=== PATIENT | female | born 1980 | race American Indian/Alaskan Native ===

== ENCOUNTER 2020-02-24 10:23 | Outpatient (CLI) | payer MEDICAID ==
[2020-02-25] MEDS ORDERED: LACTATED RINGERS 500 ML IV ONE (15:01)
== END 2020-02-24 10:24 | disposition home or self-care (01) ==
LOC: LAB 10:23
PROVIDERS: ATTEND Obstetrics & Gynecology
DX: O26.893 Other specified pregnancy related conditions, third trimester (principal); Z67.41 Type O blood, Rh negative; Z3A.33 33 weeks gestation of pregnancy
CPT/HCPCS: 86850; 86900; 86901; 96372; J2790; J7120

== ENCOUNTER 2020-02-25 15:22 | Outpatient (CLI) | payer MEDICAID | END 2020-02-25 16:02 | disposition home or self-care (01) | LOC: TRG 15:22 → APU 15:27 → TRG 16:02 | PROVIDERS: ATTEND Obstetrics & Gynecology | DX: O26.893 Other specified pregnancy related conditions, third trimester (principal); Z3A.33 33 weeks gestation of pregnancy | CPT/HCPCS: 86901; 96372; J2790 ==

== ENCOUNTER 2020-04-11 11:05 | Inpatient (IN) | payer MEDICAID ==
[2020-04-11] MEDS ORDERED: TERBUTALINE 1 MG/1 ML INJ SUB-Q PRN (13:33)
[2020-04-11] MEDS ORDERED: MINERAL OIL 30 ML ORAL LIQD PO PRN ×2 (13:33→20:03)
[2020-04-11] MEDS ORDERED: ePHEDrine SULFATE 50 MG/1 ML INJ IV PRN (13:33)
[2020-04-11] MEDS ORDERED: LIDOCAINE (2%) 20 MG/1 ML VIAL 20 ML MDV INFILTRATI ONE ×2 (14:00→20:03)
[2020-04-11 14:09] LABS: Hematocrit 32.4 % (30.3-42.9); Hemoglobin 10.8 gm/dl (10.1-14.3); Mean Corpuscular HGB Conc 33 % (30-34); Mean Corpuscular Volume 85 fl (79-97); Platelet Count 158 K/mm3 (140-440); Red Blood Count 3.82 M/mm3 (3.65-5.03); Red Cell Distribution Width 18.7 % (13.2-15.2)
[2020-04-11 14:27] LABS: Bacteria,Urine 1+ /HPF (Negative); Bilirubin,Urine NEG (Negative); Blood,Urine NEG (Negative); Color,Urine Yellow (Yellow); Mucus,Urine FEW /HPF; Protein,Urine <15 mg/dL mg/dL (Negative); Urobilinogen,Urine < 2.0 mg/dL (<2.0); WBC,Urine < 1.0 /HPF (0.0-6.0)
[2020-04-11 14:31] LABS: Alanine Aminotransferase 13 units/L (7-56)
[2020-04-11] MEDS ORDERED: DINOPROSTONE 10 MG VAG SUPP VG ONE (14:33)
[2020-04-11] MEDS ORDERED: ONDANSETRON 4 MG/2 ML INJ IV PRN (20:03)
[2020-04-11] MEDS ORDERED: NALOXONE 0.4 MG/1 ML INJ IV PRN (20:03)
[2020-04-11] MEDS ORDERED: AMPICILLIN/NS 2 GM/100 ML 2 GM/100 ML BAG IV ONE (20:03)
[2020-04-11] MEDS ORDERED: miSOPROStol 200 MCG TAB PR PRN (20:03)
[2020-04-11] MEDS ORDERED: fentaNYL 100 MCG/2 ML INJ IV PRN (20:03)
[2020-04-11] MEDS ORDERED: BUTORPHANOL 2 MG/1 ML INJ IV PRN (20:03)
--- NOTE | 2020-04-11 20:10 | History and Physical Report ---
History of Present Illness Date of examination: 04/11/20 Date of admission: 04/11/20 11:05 Chief complaint: induction of labor History of present illness: Pt is a 40 year old female primigravida ABY 04/10/20 at 40w1d who presents for induction of labor. Her blood pressures were found to be elevated on Saturday04/08/20 and she was told to present to the hospital for induction at that time, but the patient remained at home because she was nervous. She checked her blood pressure over the weekend and reports values 140-150s/90s so she presented today as previously scheduled. She reports good movement and denies vaginal bleeding or leakage of fluid. She has had care at [facility] with comanagement by [facility] secondary to advanced maternal age, obesity, LGA fetus, pericardial effusion, fibroid uterus, Rh Negative s/p Rhogam on 02/24/20, genital herpes without lesion or prodrome, and GBS positive. Past History Past Medical History: no pertinent history Past Surgical History: no surgical history [employer]IST History: herpes (no lesion or prodrome ) Family/Genetic History: none Social history: no significant social history, - Obstetrical History Expected Date of Delivery: 04/10/20 Actual Gestation: 40 Week(s) 1 Day(s) : 1 Medications and Allergies Allergies Allergy/AdvReac Type Severity Reaction Status Date / Time No Known Allergies Allergy Verified 02/25/20 14:56 Home Medications Medication Instructions Recorded Confirmed Last Taken Type Pepcid 20 mg PO DAILY 04/11/20 04/11/20 2 Days Ago History ~04/09/20 20 MG Promethazine 25 mg PO Q6H PRN 04/11/20 04/11/20 2 Days Ago History ~04/09/20 25 mG Valacyclovir HCl [Valacyclovir] 1,000 mg PO DAILY 04/11/20 04/11/20 2 Days Ago History ~04/09/20 1000 Active Meds: Active Medications Ephedrine Sulfate (Ephedrine Sulfate 50 Mg/1 Ml Inj) 10 mg IV Q2M PRN PRN Reason: Hypotension Oxytocin/Sodium Chloride (Pitocin/Ns 30 Unit/500ml) 30 units in 500 mls @ 2 mls/hr IV TITR PERLITA; Protocol Lactated Ringer's (Lactated Ringers) 1,000 mls @ 125 mls/hr IV DIRECT PERLITA Mineral Oil (Mineral Oil 30 Ml Oral Liqd) 30 ml PO QHS PRN PRN Reason: Constipation Terbutaline Sulfate (Terbutaline 1 Mg/1 Ml Inj) 0.25 mg SUB-Q ONCE PRN PRN Reason: Hyperstimulation/Hypertonicity Review of Systems All systems: negative - Vital Signs Vital signs: Vital Signs Pulse BP 112 H 144/79 04/11/20 12:19 04/11/20 12:19 Temp Pulse Resp BP Pulse Ox 98.2 F 99 H 16 133/73 99 04/11/20 18:40 04/11/20 20:00 04/11/20 18:40 04/11/20 19:50 04/11/20 20:00 - Physical Exam Breasts: Positive: deferred Abdomen: Positive: soft (obese, gravid ) Genitourinary (Female): Positive: normal external genitalia Uterus: Positive: enlarged (gravid ) Extremities: Positive: normal - Obstetrical FHR: auscultation normal Uterine Contraction Monitor Mode: External Cervical Dilatation: 0 (per RN ) Uterine Contraction Pattern: Absent Uterine Tone Measurement Phase: Resting Uterine Contraction Intensity: Mild Results Result Diagrams: 04/11/20 13:30 04/11/20 13:30 Abnormal lab results 04/11/20 04/11/20 Range/Units 13:30 13:30 RDW 18.7 H (13.2-15.2) % Lactate Dehydrogenase 270 H (91-180) units/L All other labs normal. Assessment and Plan A: IUP at 40w1d Gestational Hypertension Advanced Maternal Age Obesity LGA fetus pericardial effusion Fibroid uterus Rh Negative s/p Rhogam on 02/24/20 Genital herpes without lesion or prodrome GBS positive P: Admit to labor and delivery PIH labs Cervical ripening with Cervidil Valtrex for prophylaxis Routine intrapartum care
[2020-04-11] MEDS ORDERED: OXYTOCIN DRIP 30 UNITS/500 ML BAG IV SCH (21:00)
[2020-04-11] MEDS: LACTATED RINGERS 1,000 ML IV SCH (21:21)
[2020-04-11] MEDS: valACYclovir 500 MG TAB PO SCH (22:18)
[2020-04-12] MEDS: LACTATED RINGERS 1,000 ML IV SCH ×3 (04:12→22:09)
[2020-04-12] MEDS ORDERED: FLU VACC QUAD 2020-2021 (6 months +)/PF 60 0.5 ML SYRINGE IM ONE (12:00)
[2020-04-12] MEDS: OXYTOCIN DRIP 30 UNITS/500 ML BAG IV SCH (12:26)
[2020-04-12] MEDS ORDERED: miSOPROStol 25 MCG TAB VG SCH (13:00)
--- NOTE | 2020-04-12 14:34 | Event Note ---
Date: 04/12/20 Pt now reports some pain with contractions. Category I tracing. Currently on pitocin because too may contractions to administer cervidil. Continue to closely monitor maternal and status.
[2020-04-12] MEDS: valACYclovir 500 MG TAB PO SCH (14:48)
[2020-04-12] MEDS: AMPICILLIN/NS 1 GM/50 ML 1 GM/50 ML BAG IV SCH ×2 (16:55→22:50)
[2020-04-12] MEDS ORDERED: DINOPROSTONE 10 MG VAG SUPP VG ONE (18:00)
[2020-04-13] MEDS: AMPICILLIN/NS 1 GM/50 ML 1 GM/50 ML BAG IV SCH ×5 (02:50→18:20)
[2020-04-13] MEDS ORDERED: NALOXONE 2 MG/2 ML INJ IV PRN (03:44)
[2020-04-13] MEDS ORDERED: ePHEDrine SULFATE 50 MG/1 ML INJ IV PRN (03:44)
--- NOTE | 2020-04-13 03:44 | Anesthesia Consultation ---
Anesthesia Consult and Med Hx Date of service: 04/13/20 - Airway Anesthetic Teeth Evaluation: Good ROM Head & Neck: Adequate Mental/Hyoid Distance: Adequate Mallampati Class: Class II Intubation Access Assessment: Probably Good - Pulmonary Exam CTA: Yes - Cardiac Exam Cardiac Exam: RRR - Pre-Operative Health Status ASA Pre-Surgery Classification: ASA2 Proposed Anesthetic Plan: Epidural - Pulmonary Hx Smoking: No Hx Asthma: No COPD: No Hx Pneumonia: No - Cardiovascular System Hx Hypertension: Yes Hx Coronary Artery Disease: No Hx Heart Attack/AMI: No Hx Angina: No Hx Percutaneous Transluminal Coronary Angioplasty (PTCA): No Hx Cardia Arrhythmia: No Hx Pacemaker: No Hx Internal Defibrillator: No Hx Valvular Heart Disease: No Hx Heart Murmur: No Hx Peripheral Vascular Disease: No - Central Nervous System Hx Neuromuscular Disorder: No Hx Seizures: No CVA: No Hx Back Pain: No Hx Psychiatric Problems: No - Gastrointestinal Hx Ulcer: No Hx Gastroesophageal Reflux Disease: No - Endocrine Hx Renal Disease: No Hx End Stage Renal Disease: No Hx Cirrhosis: No Hx Liver Disease: No Hx Insulin Dependent Diabetes: No Hx Non-Insulin Dependent Diabetes: No Hx Thyroid Disease: No Hx Hypothyroidism: No Hx Hyperthyroidism: No - Hematic Hx Anemia: No Hx Sickle Cell Disease: No - Other Systems Hx Alcohol Use: No Hx Substance Use: No Hx Cancer: No Hx Obesity: Yes
--- NOTE | 2020-04-13 03:44 | Progress Note ---
Labor Epidural - Labor Epidural Start Time: 04:05 Stop Time: 04:22 Performed by:: WILEY MONSON Procedure: Patient is requesting a laboring epidural for laboring pain. Patient IDed, H&P reviewed, all questions and concerns were answered, and consent was signed. Timeout was performed at bedside. Patient in sitting position. Sterile prep and drape was performed. [3] ml of 1% lidocaine skin wheal at L[3]- L [4]. 18- gauge Tuohy epidural needle was advanced to loss of resistance with air technique to 8cm. Negative CSF negative blood via Tuohy needle. #27g Spinal needle clear, free flowing CSF, Pecedex 10 mcg. Epidural catheter advanced to [12] centimeters. [negative] Aspiration [negative] test dose. Sterile dressing applied. Patient tolerated procedure.
[2020-04-13] MEDS: LACTATED RINGERS 1,000 ML IV SCH ×3 (04:24→15:12)
[2020-04-13] MEDS: fentaNYL-BUPIV 2 MCG/ML-0.125% 200 MCG/100 ML BAG EPIDURAL SCH ×2 (04:47→15:08)
[2020-04-13] MEDS: OXYTOCIN DRIP 30 UNITS/500 ML BAG IV SCH (06:11)
--- NOTE | 2020-04-13 08:57 | Progress Note ---
Assessment and Plan A: 40 yo at 40w2d EGA Active labor Gestational hypertension Advanced maternal age Rh negative GBS positive P: AROM clear fluid at 0730 Ampicillin prophylaxis Pitocin augmentation Anticipate Subjective - Subjective Date of service: 04/13/20 Principal diagnosis: Induction of labor for gHTN Interval history: HD3 of IOL for gestational hypertension and advanced maternal age Patient reports: movement normal, contractions (comfortable with epidural), no new complaints, no loss of fluid, no vaginal bleeding Objective - Vital Signs Vital Signs: Vital Signs - 12hr 04/12/20 04/12/20 04/12/20 20:55 21:00 21:05 Temperature Pulse Rate 98 H 94 H 87 Blood Pressure O2 Sat by Pulse 99 99 98 Oximetry 04/12/20 04/12/20 04/12/20 21:10 21:15 21:16 Temperature Pulse Rate 80 91 H 83 Blood Pressure 113/55 O2 Sat by Pulse 99 99 Oximetry 04/12/20 04/12/20 04/12/20 21:20 21:25 21:30 Temperature Pulse Rate 86 95 H 90 Blood Pressure O2 Sat by Pulse 98 97 98 Oximetry 04/12/20 04/12/20 04/12/20 21:35 21:40 21:45 Temperature Pulse Rate 118 H 95 H 90 Blood Pressure O2 Sat by Pulse 98 98 98 Oximetry 04/12/20 04/12/20 04/12/20 21:50 21:55 22:00 Temperature Pulse Rate 93 H 104 H 86 Blood Pressure O2 Sat by Pulse 99 100 99 Oximetry 04/12/20 04/12/20 04/12/20 22:05 22:19 22:24 Temperature Pulse Rate 91 H 116 H 95 H Blood Pressure O2 Sat by Pulse 99 100 100 Oximetry 04/12/20 04/12/20 04/12/20 22:29 22:34 22:39 Temperature Pulse Rate 103 H 98 H 97 H Blood Pressure O2 Sat by Pulse 99 99 100 Oximetry 04/12/20 04/12/20 04/12/20 22:44 22:49 22:54 Temperature Pulse Rate 95 H 92 H 90 Blood Pressure O2 Sat by Pulse 100 99 100 Oximetry 04/12/20 04/12/20 04/12/20 22:59 23:04 23:13 Temperature Pulse Rate 106 H 108 H 109 H Blood Pressure O2 Sat by Pulse 99 100 99 Oximetry 04/12/20 04/12/20 04/12/20 23:18 23:23 23:28 Temperature Pulse Rate 106 H 101 H 110 H Blood Pressure O2 Sat by Pulse 98 98 99 Oximetry 04/12/20 04/12/20 04/12/20 23:33 23:38 23:43 Temperature Pulse Rate 103 H 100 H 103 H Blood Pressure O2 Sat by Pulse 99 99 98 Oximetry 04/12/20 04/12/20 04/13/20 23:50 23:55 00:00 Temperature Pulse Rate 109 H 101 H 103 H Blood Pressure O2 Sat by Pulse 99 99 98 Oximetry 04/13/20 04/13/20 04/13/20 00:05 00:10 00:15 Temperature Pulse Rate 101 H 100 H 102 H Blood Pressure 125/63 O2 Sat by Pulse 98 99 99 Oximetry 04/13/20 04/13/20 04/13/20 00:20 00:25 00:30 Temperature Pulse Rate 102 H 103 H 104 H Blood Pressure O2 Sat by Pulse 98 99 98 Oximetry 04/13/20 04/13/20 04/13/20 00:35 00:40 00:45 Temperature Pulse Rate 110 H 118 H 104 H Blood Pressure O2 Sat by Pulse 96 100 98 Oximetry 04/13/20 04/13/20 04/13/20 00:50 01:02 01:07 Temperature Pulse Rate 107 H 119 H 109 H Blood Pressure O2 Sat by Pulse 100 99 99 Oximetry 04/13/20 04/13/20 04/13/20 01:12 01:17 01:22 Temperature Pulse Rate 97 H 114 H 110 H Blood Pressure O2 Sat by Pulse 97 100 97 Oximetry 04/13/20 04/13/20 04/13/20 01:27 01:32 01:37 Temperature Pulse Rate 108 H 99 H 105 H Blood Pressure O2 Sat by Pulse 97 99 97 Oximetry 04/13/20 04/13/20 04/13/20 01:42 01:47 01:52 Temperature Pulse Rate 103 H 101 H 110 H Blood Pressure O2 Sat by Pulse 99 99 98 Oximetry 04/13/20 04/13/20 04/13/20 02:01 02:06 02:11 Temperature Pulse Rate 101 H 105 H 109 H Blood Pressure O2 Sat by Pulse 99 99 98 Oximetry 04/13/20 04/13/20 04/13/20 02:15 02:16 02:17 Temperature Pulse Rate 100 H 95 H 105 H Blood Pressure 115/56 O2 Sat by Pulse 96 94 Oximetry 04/13/20 04/13/20 04/13/20 02:21 02:23 02:26 Temperature Pulse Rate 95 H 92 H 97 H Blood Pressure O2 Sat by Pulse 95 94 95 Oximetry 04/13/20 04/13/20 04/13/20 02:31 02:36 02:41 Temperature Pulse Rate 95 H 93 H 97 H Blood Pressure O2 Sat by Pulse 99 97 100 Oximetry 04/13/20 04/13/20 04/13/20 02:46 02:51 02:56 Temperature Pulse Rate 103 H 99 H 96 H Blood Pressure O2 Sat by Pulse 98 97 99 Oximetry 04/13/20 04/13/20 04/13/20 03:01 03:06 03:11 Temperature Pulse Rate 107 H 105 H 105 H Blood Pressure O2 Sat by Pulse 100 98 98 Oximetry 04/13/20 04/13/20 04/13/20 03:14 03:16 03:21 Temperature Pulse Rate 100 H 95 H 99 H Blood Pressure 121/57 O2 Sat by Pulse 94 95 97 Oximetry 04/13/20 04/13/20 04/13/20 03:26 03:30 03:31 Temperature Pulse Rate 101 H 97 H 118 H Blood Pressure O2 Sat by Pulse 99 93 100 Oximetry 04/13/20 04/13/20 04/13/20 03:36 03:41 03:46 Temperature Pulse Rate 94 H 112 H 103 H Blood Pressure O2 Sat by Pulse 98 100 97 Oximetry 04/13/20 04/13/20 04/13/20 03:51 03:56 03:57 Temperature Pulse Rate 94 H 94 H 96 H Blood Pressure 130/66 O2 Sat by Pulse 98 100 Oximetry 04/13/20 04/13/20 04/13/20 04:01 04:06 04:07 Temperature Pulse Rate 98 H 96 H 90 Blood Pressure 114/71 O2 Sat by Pulse 98 99 Oximetry 04/13/20 04/13/20 04/13/20 04:11 04:15 04:16 Temperature Pulse Rate 105 H 100 H 105 H Blood Pressure 126/68 O2 Sat by Pulse 99 99 Oximetry 04/13/20 04/13/20 04/13/20 04:21 04:23 04:24 Temperature Pulse Rate 98 H 91 H 102 H Blood Pressure 130/65 119/64 O2 Sat by Pulse 100 Oximetry 04/13/20 04/13/20 04/13/20 04:26 04:27 04:28 Temperature Pulse Rate 109 H 112 H 101 H Blood Pressure 146/61 121/56 O2 Sat by Pulse 99 Oximetry 04/13/20 04/13/20 04/13/20 04:30 04:31 04:32 Temperature Pulse Rate 100 H 94 H 98 H Blood Pressure 118/57 118/56 O2 Sat by Pulse 99 Oximetry 04/13/20 04/13/20 04/13/20 04:34 04:36 04:41 Temperature Pulse Rate 92 H 86 81 Blood Pressure 108/59 111/54 O2 Sat by Pulse 100 99 Oximetry 04/13/20 04/13/20 04/13/20 04:46 04:50 04:51 Temperature Pulse Rate 82 72 82 Blood Pressure 105/59 116/62 O2 Sat by Pulse 100 100 Oximetry 04/13/20 04/13/20 04/13/20 04:55 04:56 05:01 Temperature Pulse Rate 76 79 77 Blood Pressure 116/57 112/59 O2 Sat by Pulse 100 100 Oximetry 04/13/20 04/13/20 04/13/20 05:05 05:06 05:10 Temperature Pulse Rate 99 H 84 81 Blood Pressure 115/59 115/58 O2 Sat by Pulse 100 Oximetry 04/13/20 04/13/20 04/13/20 05:11 05:15 05:16 Temperature Pulse Rate 86 82 78 Blood Pressure 117/60 O2 Sat by Pulse 100 100 Oximetry 04/13/20 04/13/20 04/13/20 05:21 05:25 05:26 Temperature Pulse Rate 76 74 74 Blood Pressure 112/59 109/57 O2 Sat by Pulse 100 100 Oximetry 04/13/20 04/13/20 04/13/20 05:31 05:35 05:36 Temperature Pulse Rate 80 80 96 H Blood Pressure 109/60 105/56 O2 Sat by Pulse 100 100 Oximetry 04/13/20 04/13/20 04/13/20 05:40 05:41 05:45 Temperature Pulse Rate 82 81 82 Blood Pressure 106/55 104/59 O2 Sat by Pulse 100 Oximetry 12/04/13/20 04/13/20 05:46 05:51 05:56 Temperature Pulse Rate 88 87 89 Blood Pressure O2 Sat by Pulse 100 98 98 Oximetry 04/13/20 04/13/20 04/13/20 06:01 06:02 06:06 Temperature Pulse Rate 80 76 95 H Blood Pressure 111/57 O2 Sat by Pulse 98 100 Oximetry 04/13/20 04/13/20 04/13/20 06:11 06:13 06:16 Temperature 98.4 F Pulse Rate 79 83 Blood Pressure O2 Sat by Pulse 98 97 Oximetry 04/13/20 04/13/20 04/13/20 06:17 06:21 06:26 Temperature Pulse Rate 82 84 81 Blood Pressure 110/55 O2 Sat by Pulse 99 98 Oximetry 04/13/20 04/13/20 04/13/20 06:31 06:32 06:36 Temperature Pulse Rate 82 75 74 Blood Pressure 101/58 O2 Sat by Pulse 98 98 Oximetry 04/13/20 04/13/20 04/13/20 06:41 06:46 06:51 Temperature Pulse Rate 90 84 76 Blood Pressure O2 Sat by Pulse 98 97 97 Oximetry 04/13/20 04/13/20 04/13/20 06:56 07:01 07:06 Temperature Pulse Rate 78 79 86 Blood Pressure O2 Sat by Pulse 96 97 97 Oximetry 04/13/20 04/13/20 04/13/20 07:10 07:11 07:16 Temperature Pulse Rate 91 H 94 H 89 Blood Pressure 101/51 O2 Sat by Pulse 98 97 Oximetry 04/13/20 04/13/20 04/13/20 07:17 07:21 07:26 Temperature Pulse Rate 87 84 83 Blood Pressure 95/50 O2 Sat by Pulse 98 98 Oximetry 04/13/20 04/13/20 04/13/20 07:30 07:31 07:36 Temperature 99.3 F Pulse Rate 80 77 Blood Pressure O2 Sat by Pulse 97 97 Oximetry 04/13/20 04/13/20 04/13/20 07:41 07:46 07:48 Temperature Pulse Rate 91 H 101 H 100 H Blood Pressure 100/59 O2 Sat by Pulse 99 99 Oximetry 04/13/20 04/13/20 04/13/20 07:51 07:56 08:01 Temperature Pulse Rate 93 H 85 81 Blood Pressure O2 Sat by Pulse 99 99 99 Oximetry 04/13/20 04/13/20 04/13/20 08:06 08:11 08:16 Temperature Pulse Rate 91 H 92 H 104 H Blood Pressure O2 Sat by Pulse 98 99 99 Oximetry 04/13/20 04/13/20 04/13/20 08:19 08:21 08:26 Temperature Pulse Rate 90 86 83 Blood Pressure 111/59 O2 Sat by Pulse 99 99 Oximetry 04/13/20 04/13/20 04/13/20 08:31 08:36 08:41 Temperature Pulse Rate 90 101 H 83 Blood Pressure O2 Sat by Pulse 98 99 100 Oximetry 04/13/20 04/13/20 04/13/20 08:46 08:47 08:51 Temperature Pulse Rate 76 85 115 H Blood Pressure 113/57 O2 Sat by Pulse 100 100 Oximetry - Exam Abdomen: Present: soft. Absent: distention Uterus: Present: firm FHR: category 1 Uterine Contraction Monitor Mode: External Cervical Dilatation: 9.5 Cervical Effacement Percentage: 100 station: -2 Uterine Contraction Pattern: Regular Uterine Tone Measurement Phase: Contraction Uterine Contraction Intensity: Strong/Firm Extremities: normal - Labs Labs: Abnormal Labs 04/11/20 04/11/20 13:30 13:30 RDW 18.7 H Lactate Dehydrogenase 270 H
[2020-04-13] MEDS: valACYclovir 500 MG TAB PO SCH (10:29)
--- NOTE | 2020-04-13 11:00 | Progress Note ---
Assessment and Plan A: 40 yo at 40w2d EGA Active labor Gestational hypertension Advanced maternal age Rh negative GBS positive P: Continue current care with frequent position changes Ampicillin prophylaxis Pitocin augmentation Anticipate Subjective - Subjective Date of service: 04/13/20 Principal diagnosis: Induction of labor for gHTN Interval history: Minimal FHR variability at 0950, patient repositioned, O2 face mask applied, IV bolus initiated. Variability improved after scalp stimulation at 1015. Patient reports: movement normal, contractions (comfortable with epidural), no new complaints, no vaginal bleeding Objective - Vital Signs Vital Signs: Vital Signs - 12hr 04/12/20 04/12/20 04/12/20 22:59 23:04 23:13 Temperature Pulse Rate 106 H 108 H 109 H Blood Pressure O2 Sat by Pulse 99 100 99 Oximetry 04/12/20 04/12/20 04/12/20 23:18 23:23 23:28 Temperature Pulse Rate 106 H 101 H 110 H Blood Pressure O2 Sat by Pulse 98 98 99 Oximetry 04/12/20 04/12/20 04/12/20 23:33 23:38 23:43 Temperature Pulse Rate 103 H 100 H 103 H Blood Pressure O2 Sat by Pulse 99 99 98 Oximetry 04/12/20 04/12/20 04/13/20 23:50 23:55 00:00 Temperature Pulse Rate 109 H 101 H 103 H Blood Pressure O2 Sat by Pulse 99 99 98 Oximetry 04/13/20 04/13/20 04/13/20 00:05 00:10 00:15 Temperature Pulse Rate 101 H 100 H 102 H Blood Pressure 125/63 O2 Sat by Pulse 98 99 99 Oximetry 04/13/20 04/13/20 04/13/20 00:20 00:25 00:30 Temperature Pulse Rate 102 H 103 H 104 H Blood Pressure O2 Sat by Pulse 98 99 98 Oximetry 04/13/20 04/13/20 04/13/20 00:35 00:40 00:45 Temperature Pulse Rate 110 H 118 H 104 H Blood Pressure O2 Sat by Pulse 96 100 98 Oximetry 04/13/20 04/13/20 04/13/20 00:50 01:02 01:07 Temperature Pulse Rate 107 H 119 H 109 H Blood Pressure O2 Sat by Pulse 100 99 99 Oximetry 04/13/20 04/13/20 04/13/20 01:12 01:17 01:22 Temperature Pulse Rate 97 H 114 H 110 H Blood Pressure O2 Sat by Pulse 97 100 97 Oximetry 04/13/20 04/13/20 04/13/20 01:27 01:32 01:37 Temperature Pulse Rate 108 H 99 H 105 H Blood Pressure O2 Sat by Pulse 97 99 97 Oximetry 04/13/20 04/13/20 04/13/20 01:42 01:47 01:52 Temperature Pulse Rate 103 H 101 H 110 H Blood Pressure O2 Sat by Pulse 99 99 98 Oximetry 04/13/20 04/13/20 04/13/20 02:01 02:06 02:11 Temperature Pulse Rate 101 H 105 H 109 H Blood Pressure O2 Sat by Pulse 99 99 98 Oximetry 04/13/20 04/13/20 04/13/20 02:15 02:16 02:17 Temperature Pulse Rate 100 H 95 H 105 H Blood Pressure 115/56 O2 Sat by Pulse 96 94 Oximetry 04/13/20 04/13/20 04/13/20 02:21 02:23 02:26 Temperature Pulse Rate 95 H 92 H 97 H Blood Pressure O2 Sat by Pulse 95 94 95 Oximetry 04/13/20 04/13/20 04/13/20 02:31 02:36 02:41 Temperature Pulse Rate 95 H 93 H 97 H Blood Pressure O2 Sat by Pulse 99 97 100 Oximetry 04/13/20 04/13/20 04/13/20 02:46 02:51 02:56 Temperature Pulse Rate 103 H 99 H 96 H Blood Pressure O2 Sat by Pulse 98 97 99 Oximetry 04/13/20 04/13/20 04/13/20 03:01 03:06 03:11 Temperature Pulse Rate 107 H 105 H 105 H Blood Pressure O2 Sat by Pulse 100 98 98 Oximetry 04/13/20 04/13/20 04/13/20 03:14 03:16 03:21 Temperature Pulse Rate 100 H 95 H 99 H Blood Pressure 121/57 O2 Sat by Pulse 94 95 97 Oximetry 04/13/20 04/13/20 04/13/20 03:26 03:30 03:31 Temperature Pulse Rate 101 H 97 H 118 H Blood Pressure O2 Sat by Pulse 99 93 100 Oximetry 04/13/20 04/13/20 04/13/20 03:36 03:41 03:46 Temperature Pulse Rate 94 H 112 H 103 H Blood Pressure O2 Sat by Pulse 98 100 97 Oximetry 04/13/20 04/13/20 04/13/20 03:51 03:56 03:57 Temperature Pulse Rate 94 H 94 H 96 H Blood Pressure 130/66 O2 Sat by Pulse 98 100 Oximetry 04/13/20 04/13/20 04/13/20 04:01 04:06 04:07 Temperature Pulse Rate 98 H 96 H 90 Blood Pressure 114/71 O2 Sat by Pulse 98 99 Oximetry 04/13/20 04/13/20 04/13/20 04:11 04:15 04:16 Temperature Pulse Rate 105 H 100 H 105 H Blood Pressure 126/68 O2 Sat by Pulse 99 99 Oximetry 04/13/20 04/13/20 04/13/20 04:21 04:23 04:24 Temperature Pulse Rate 98 H 91 H 102 H Blood Pressure 130/65 119/64 O2 Sat by Pulse 100 Oximetry 04/13/20 04/13/20 04/13/20 04:26 04:27 04:28 Temperature Pulse Rate 109 H 112 H 101 H Blood Pressure 146/61 121/56 O2 Sat by Pulse 99 Oximetry 04/13/20 04/13/20 04/13/20 04:30 04:31 04:32 Temperature Pulse Rate 100 H 94 H 98 H Blood Pressure 118/57 118/56 O2 Sat by Pulse 99 Oximetry 04/13/20 04/13/20 04/13/20 04:34 04:36 04:41 Temperature Pulse Rate 92 H 86 81 Blood Pressure 108/59 111/54 O2 Sat by Pulse 100 99 Oximetry 04/13/20 04/13/20 04/13/20 04:46 04:50 04:51 Temperature Pulse Rate 82 72 82 Blood Pressure 105/59 116/62 O2 Sat by Pulse 100 100 Oximetry 04/13/20 04/13/20 04/13/20 04:55 04:56 05:01 Temperature Pulse Rate 76 79 77 Blood Pressure 116/57 112/59 O2 Sat by Pulse 100 100 Oximetry 04/13/20 04/13/20 04/13/20 05:05 05:06 05:10 Temperature Pulse Rate 99 H 84 81 Blood Pressure 115/59 115/58 O2 Sat by Pulse 100 Oximetry 12/16/20 12/16/20 12/16/20 05:11 05:15 05:16 Temperature Pulse Rate 86 82 78 Blood Pressure 117/60 O2 Sat by Pulse 100 100 Oximetry 04/13/20 04/13/20 04/13/20 05:21 05:25 05:26 Temperature Pulse Rate 76 74 74 Blood Pressure 112/59 109/57 O2 Sat by Pulse 100 100 Oximetry 04/13/20 04/13/20 04/13/20 05:31 05:35 05:36 Temperature Pulse Rate 80 80 96 H Blood Pressure 109/60 105/56 O2 Sat by Pulse 100 100 Oximetry 04/13/20 04/13/20 04/13/20 05:40 05:41 05:45 Temperature Pulse Rate 82 81 82 Blood Pressure 106/55 104/59 O2 Sat by Pulse 100 Oximetry 04/13/20 04/13/20 04/13/20 05:46 05:51 05:56 Temperature Pulse Rate 88 87 89 Blood Pressure O2 Sat by Pulse 100 98 98 Oximetry 04/13/20 04/13/20 04/13/20 06:01 06:02 06:06 Temperature Pulse Rate 80 76 95 H Blood Pressure 111/57 O2 Sat by Pulse 98 100 Oximetry 04/13/20 04/13/20 04/13/20 06:11 06:13 06:16 Temperature 98.4 F Pulse Rate 79 83 Blood Pressure O2 Sat by Pulse 98 97 Oximetry 04/13/20 04/13/20 04/13/20 06:17 06:21 06:26 Temperature Pulse Rate 82 84 81 Blood Pressure 110/55 O2 Sat by Pulse 99 98 Oximetry 04/13/20 04/13/20 04/13/20 06:31 06:32 06:36 Temperature Pulse Rate 82 75 74 Blood Pressure 101/58 O2 Sat by Pulse 98 98 Oximetry 04/13/20 04/13/20 04/13/20 06:41 06:46 06:51 Temperature Pulse Rate 90 84 76 Blood Pressure O2 Sat by Pulse 98 97 97 Oximetry 04/13/20 04/13/20 04/13/20 06:56 07:01 07:06 Temperature Pulse Rate 78 79 86 Blood Pressure O2 Sat by Pulse 96 97 97 Oximetry 04/13/20 04/13/20 04/13/20 07:10 07:11 07:16 Temperature Pulse Rate 91 H 94 H 89 Blood Pressure 101/51 O2 Sat by Pulse 98 97 Oximetry 04/13/20 04/13/20 04/13/20 07:17 07:21 07:26 Temperature Pulse Rate 87 84 83 Blood Pressure 95/50 O2 Sat by Pulse 98 98 Oximetry 04/13/20 04/13/20 04/13/20 07:30 07:31 07:36 Temperature 99.3 F Pulse Rate 80 77 Blood Pressure O2 Sat by Pulse 97 97 Oximetry 04/13/20 04/13/20 04/13/20 07:41 07:46 07:48 Temperature Pulse Rate 91 H 101 H 100 H Blood Pressure 100/59 O2 Sat by Pulse 99 99 Oximetry 04/13/20 04/13/20 04/13/20 07:51 07:56 08:01 Temperature Pulse Rate 93 H 85 81 Blood Pressure O2 Sat by Pulse 99 99 99 Oximetry 04/13/20 04/13/20 04/13/20 08:06 08:11 08:16 Temperature Pulse Rate 91 H 92 H 104 H Blood Pressure O2 Sat by Pulse 98 99 99 Oximetry 04/13/20 04/13/20 04/13/20 08:19 08:21 08:26 Temperature Pulse Rate 90 86 83 Blood Pressure 111/59 O2 Sat by Pulse 99 99 Oximetry 04/13/20 04/13/20 04/13/20 08:31 08:36 08:41 Temperature Pulse Rate 90 101 H 83 Blood Pressure O2 Sat by Pulse 98 99 100 Oximetry 04/13/20 04/13/20 04/13/20 08:46 08:47 08:51 Temperature Pulse Rate 76 85 115 H Blood Pressure 113/57 O2 Sat by Pulse 100 100 Oximetry 04/13/20 04/13/20 04/13/20 08:56 09:01 09:06 Temperature Pulse Rate 76 72 79 Blood Pressure O2 Sat by Pulse 100 100 100 Oximetry 04/13/20 04/13/20 04/13/20 09:11 09:16 09:17 Temperature Pulse Rate 84 91 H 99 H Blood Pressure 115/57 O2 Sat by Pulse 100 100 Oximetry 04/13/20 04/13/20 04/13/20 09:21 09:26 09:31 Temperature Pulse Rate 90 81 80 Blood Pressure O2 Sat by Pulse 99 99 99 Oximetry 04/13/20 04/13/20 04/13/20 09:36 09:41 09:46 Temperature Pulse Rate 83 80 118 H Blood Pressure O2 Sat by Pulse 99 99 100 Oximetry 04/13/20 04/13/20 04/13/20 09:47 09:51 09:56 Temperature Pulse Rate 118 H 111 H 101 H Blood Pressure 119/61 O2 Sat by Pulse 100 100 Oximetry 04/13/20 04/13/20 04/13/20 10:01 10:06 10:11 Temperature Pulse Rate 95 H 89 87 Blood Pressure O2 Sat by Pulse 100 100 100 Oximetry 04/13/20 04/13/20 04/13/20 10:16 10:17 10:21 Temperature Pulse Rate 94 H 93 H 103 H Blood Pressure 111/65 O2 Sat by Pulse 100 100 Oximetry 04/13/20 04/13/20 04/13/20 10:26 10:31 10:36 Temperature Pulse Rate 98 H 98 H 92 H Blood Pressure O2 Sat by Pulse 100 100 100 Oximetry 04/13/20 04/13/20 04/13/20 10:41 10:46 10:51 Temperature Pulse Rate 86 97 H 89 Blood Pressure O2 Sat by Pulse 100 100 100 Oximetry 04/13/20 10:56 Temperature Pulse Rate 82 Blood Pressure O2 Sat by Pulse 100 Oximetry - Exam FHR: category 1, category 2 Uterine Contraction Monitor Mode: External Uterine Contraction Intensity: Strong/Firm - Labs Labs: Abnormal Labs 04/11/20 04/11/20 13:30 13:30 RDW 18.7 H Lactate Dehydrogenase 270 H
[2020-04-13] MEDS ORDERED: LIDOCAINE MPF (2%) 20 MG/1 ML VIAL 5 ML ONE ×3 (14:56→20:00)
--- NOTE | 2020-04-13 16:09 | Progress Note ---
Assessment and Plan A: 40 yo at 40w2d EGA Active labor Gestational hypertension Advanced maternal age Rh negative GBS positive P: Continue current care with frequent position changes Ampicillin prophylaxis Pitocin augmentation MD aware of patient Subjective - Subjective Date of service: 04/13/20 Principal diagnosis: Induction of labor for gHTN Interval history: Trial of pushing at 1200, SVE c/c/-1 with anterior lip (able to reduce). Persistent anterior lip, good maternal effort but minimal descent. Position movement to H&K with laboring down x1h, no change in SVE. Patient exhausted, re-bolus epidural at 1530, plan labor down with continued pitocin augmentation to allow for maternal rest. Patient reports: movement normal, contractions (comfortable with epidural), no new complaints, no vaginal bleeding Objective - Vital Signs Vital Signs: Vital Signs - 12hr 04/13/20 04/13/20 04/13/20 04:07 04:11 04:15 Temperature Pulse Rate 90 105 H 100 H Blood Pressure 114/71 126/68 O2 Sat by Pulse 99 Oximetry 04/13/20 04/13/20 04/13/20 04:16 04:21 04:23 Temperature Pulse Rate 105 H 98 H 91 H Blood Pressure 130/65 O2 Sat by Pulse 99 100 Oximetry 04/13/20 04/13/20 04/13/20 04:24 04:26 04:27 Temperature Pulse Rate 102 H 109 H 112 H Blood Pressure 119/64 146/61 O2 Sat by Pulse 99 Oximetry 04/13/20 04/13/20 04/13/20 04:28 04:30 04:31 Temperature Pulse Rate 101 H 100 H 94 H Blood Pressure 121/56 118/57 O2 Sat by Pulse 99 Oximetry 04/13/20 04/13/20 04/13/20 04:32 04:34 04:36 Temperature Pulse Rate 98 H 92 H 86 Blood Pressure 118/56 108/59 O2 Sat by Pulse 100 Oximetry 04/13/20 04/13/20 04/13/20 04:41 04:46 04:50 Temperature Pulse Rate 81 82 72 Blood Pressure 111/54 105/59 116/62 O2 Sat by Pulse 99 100 Oximetry 04/13/20 04/13/20 04/13/20 04:51 04:55 04:56 Temperature Pulse Rate 82 76 79 Blood Pressure 116/57 O2 Sat by Pulse 100 100 Oximetry 04/13/20 04/13/20 04/13/20 05:01 05:05 05:06 Temperature Pulse Rate 77 99 H 84 Blood Pressure 112/59 115/59 O2 Sat by Pulse 100 100 Oximetry 04/13/20 04/13/20 04/13/20 05:10 05:11 05:15 Temperature Pulse Rate 81 86 82 Blood Pressure 115/58 117/60 O2 Sat by Pulse 100 Oximetry 04/13/20 04/13/20 04/13/20 05:16 05:21 05:25 Temperature Pulse Rate 78 76 74 Blood Pressure 112/59 109/57 O2 Sat by Pulse 100 100 Oximetry 04/13/20 04/13/20 04/13/20 05:26 05:31 05:35 Temperature Pulse Rate 74 80 80 Blood Pressure 109/60 105/56 O2 Sat by Pulse 100 100 Oximetry 04/13/20 04/13/20 04/13/20 05:36 05:40 05:41 Temperature Pulse Rate 96 H 82 81 Blood Pressure 106/55 O2 Sat by Pulse 100 100 Oximetry 04/13/20 04/13/20 04/13/20 05:45 05:46 05:51 Temperature Pulse Rate 82 88 87 Blood Pressure 104/59 O2 Sat by Pulse 100 98 Oximetry 04/13/20 04/13/20 04/13/20 05:56 06:01 06:02 Temperature Pulse Rate 89 80 76 Blood Pressure 111/57 O2 Sat by Pulse 98 98 Oximetry 04/13/20 04/13/20 04/13/20 06:06 06:11 06:13 Temperature 98.4 F Pulse Rate 95 H 79 Blood Pressure O2 Sat by Pulse 100 98 Oximetry 04/13/20 04/13/20 04/13/20 06:16 06:17 06:21 Temperature Pulse Rate 83 82 84 Blood Pressure 110/55 O2 Sat by Pulse 97 99 Oximetry 04/13/20 04/13/20 04/13/20 06:26 06:31 06:32 Temperature Pulse Rate 81 82 75 Blood Pressure 101/58 O2 Sat by Pulse 98 98 Oximetry 04/13/20 04/13/20 04/13/20 06:36 06:41 06:46 Temperature Pulse Rate 74 90 84 Blood Pressure O2 Sat by Pulse 98 98 97 Oximetry 04/13/20 04/13/2004/13/20 06:51 06:56 07:01 Temperature Pulse Rate 76 78 79 Blood Pressure O2 Sat by Pulse 97 96 97 Oximetry 04/13/20 04/13/20 04/13/20 07:06 07:10 07:11 Temperature Pulse Rate 86 91 H 94 H Blood Pressure 101/51 O2 Sat by Pulse 97 98 Oximetry 04/13/20 04/13/20 04/13/20 07:16 07:17 07:21 Temperature Pulse Rate 89 87 84 Blood Pressure 95/50 O2 Sat by Pulse 97 98 Oximetry 04/13/20 04/13/20 04/13/20 07:26 07:30 07:31 Temperature 99.3 F Pulse Rate 83 80 Blood Pressure O2 Sat by Pulse 98 97 Oximetry 04/13/20 04/13/20 04/13/20 07:36 07:41 07:46 Temperature Pulse Rate 77 91 H 101 H Blood Pressure O2 Sat by Pulse 97 99 99 Oximetry 04/13/20 04/13/20 04/13/20 07:48 07:51 07:56 Temperature Pulse Rate 100 H 93 H 85 Blood Pressure 100/59 O2 Sat by Pulse 99 99 Oximetry 04/13/20 04/13/20 04/13/20 08:01 08:06 08:11 Temperature Pulse Rate 81 91 H 92 H Blood Pressure O2 Sat by Pulse 99 98 99 Oximetry 04/13/20 04/13/20 04/13/20 08:16 08:19 08:21 Temperature Pulse Rate 104 H 90 86 Blood Pressure 111/59 O2 Sat by Pulse 99 99 Oximetry 04/13/20 04/13/20 04/13/20 08:26 08:31 08:36 Temperature Pulse Rate 83 90 101 H Blood Pressure O2 Sat by Pulse 99 98 99 Oximetry 04/13/20 04/13/20 04/13/20 08:41 08:46 08:47 Temperature Pulse Rate 83 76 85 Blood Pressure 113/57 O2 Sat by Pulse 100 100 Oximetry 04/13/20 04/13/20 04/13/20 08:51 08:56 09:01 Temperature Pulse Rate 115 H 76 72 Blood Pressure O2 Sat by Pulse 100 100 100 Oximetry 04/13/20 04/13/20 04/13/20 09:06 09:11 09:16 Temperature Pulse Rate 79 84 91 H Blood Pressure O2 Sat by Pulse 100 100 100 Oximetry 04/13/20 04/13/20 04/13/20 09:17 09:21 09:26 Temperature Pulse Rate 99 H 90 81 Blood Pressure 115/57 O2 Sat by Pulse 99 99 Oximetry 04/13/20 04/13/20 04/13/20 09:31 09:36 09:41 Temperature Pulse Rate 80 83 80 Blood Pressure O2 Sat by Pulse 99 99 99 Oximetry 04/13/20 04/13/20 04/13/20 09:46 09:47 09:51 Temperature Pulse Rate 118 H 118 H 111 H Blood Pressure 119/61 O2 Sat by Pulse 100 100 Oximetry 04/13/20 04/13/20 04/13/20 09:56 10:01 10:06 Temperature Pulse Rate 101 H 95 H 89 Blood Pressure O2 Sat by Pulse 100 100 100 Oximetry 04/13/20 04/13/20 04/13/20 10:11 10:16 10:17 Temperature Pulse Rate 87 94 H 93 H Blood Pressure 111/65 O2 Sat by Pulse 100 100 Oximetry 04/13/20 04/13/20 04/13/20 10:21 10:26 10:31 Temperature Pulse Rate 103 H 98 H 98 H Blood Pressure O2 Sat by Pulse 100 100 100 Oximetry 04/13/20 04/13/20 04/13/20 10:36 10:41 10:46 Temperature Pulse Rate 92 H 86 97 H Blood Pressure O2 Sat by Pulse 100 100 100 Oximetry 04/13/20 04/13/20 04/13/20 10:51 10:56 11:01 Temperature Pulse Rate 89 82 87 Blood Pressure O2 Sat by Pulse 100 100 100 Oximetry 04/13/20 04/13/20 04/13/20 11:06 11:11 11:12 Temperature Pulse Rate 84 92 H 100 H Blood Pressure 122/67 O2 Sat by Pulse 100 100 Oximetry 04/13/20 04/13/20 04/13/20 11:16 11:18 11:21 Temperature Pulse Rate 107 H 104 H 103 H Blood Pressure 127/63 O2 Sat by Pulse 100 100 Oximetry 04/13/20 04/13/20 04/13/20 11:26 11:31 11:36 Temperature Pulse Rate 123 H 98 H 105 H Blood Pressure O2 Sat by Pulse 100 100 100 Oximetry 04/13/20 04/13/20 04/13/20 11:41 11:46 11:49 Temperature Pulse Rate 115 H 88 93 H Blood Pressure 122/63 O2 Sat by Pulse 100 100 Oximetry 04/13/20 04/13/20 04/13/20 11:51 11:56 12:01 Temperature Pulse Rate 104 H 96 H 97 H Blood Pressure O2 Sat by Pulse 100 100 100 Oximetry 04/13/20 04/13/20 04/13/20 12:06 12:11 12:16 Temperature Pulse Rate 99 H 91 H 99 H Blood Pressure O2 Sat by Pulse 100 100 100 Oximetry 04/13/20 04/13/20 04/13/20 12:18 12:21 12:26 Temperature Pulse Rate 110 H 111 H 117 H Blood Pressure 128/63 O2 Sat by Pulse 100 100 Oximetry 04/13/20 04/13/20 04/13/20 12:31 12:36 12:41 Temperature Pulse Rate 110 H 114 H 115 H Blood Pressure O2 Sat by Pulse 100 100 100 Oximetry 04/13/20 04/13/20 04/13/20 12:46 12:48 12:51 Temperature Pulse Rate 110 H 125 H 118 H Blood Pressure 217/80 O2 Sat by Pulse 100 100 Oximetry 04/13/20 04/13/20 04/13/20 12:53 12:56 13:01 Temperature Pulse Rate 111 H 136 H 136 H Blood Pressure 144/82 O2 Sat by Pulse 100 100 Oximetry 04/13/20 04/13/20 04/13/20 13:06 13:11 13:16 Temperature Pulse Rate 120 H 133 H 152 H Blood Pressure O2 Sat by Pulse 100 98 99 Oximetry 04/13/20 04/13/20 04/13/20 13:18 13:21 13:23 Temperature Pulse Rate 125 H 124 H 135 H Blood Pressure 138/63 O2 Sat by Pulse 99 99 Oximetry 04/13/20 04/13/20 04/13/20 13:28 13:33 13:38 Temperature Pulse Rate 120 H 125 H 135 H Blood Pressure O2 Sat by Pulse 99 98 98 Oximetry 04/13/20 04/13/20 04/13/20 13:43 13:48 13:53 Temperature Pulse Rate 133 H 127 H 137 H Blood Pressure O2 Sat by Pulse 99 100 99 Oximetry 04/13/20 04/13/20 04/13/20 13:58 14:03 14:08 Temperature Pulse Rate 124 H 124 H 127 H Blood Pressure O2 Sat by Pulse 97 97 97 Oximetry 04/13/20 04/13/20 04/13/20 14:13 14:14 14:18 Temperature Pulse Rate 118 H 110 H 113 H Blood Pressure O2 Sat by Pulse 99 84 99 Oximetry 04/13/20 04/13/20 04/13/20 14:23 14:28 14:33 Temperature Pulse Rate 109 H 115 H 118 H Blood Pressure O2 Sat by Pulse 100 100 97 Oximetry 04/13/20 04/13/20 04/13/20 14:38 14:44 14:46 Temperature Pulse Rate 121 H 113 H 58 L Blood Pressure O2 Sat by Pulse 99 98 91 Oximetry 04/13/20 04/13/20 04/13/20 14:49 14:54 14:59 Temperature Pulse Rate 95 H 110 H 108 H Blood Pressure O2 Sat by Pulse 100 99 100 Oximetry 04/13/20 04/13/20 04/13/20 15:04 15:09 15:14 Temperature Pulse Rate 109 H 113 H 99 H Blood Pressure O2 Sat by Pulse 100 100 100 Oximetry 04/13/20 04/13/20 04/13/20 15:19 15:24 15:29 Temperature Pulse Rate 92 H 84 90 Blood Pressure O2 Sat by Pulse 100 100 100 Oximetry 04/13/20 04/13/20 04/13/20 15:34 15:38 15:39 Temperature Pulse Rate 95 H 85 84 Blood Pressure 117/68 O2 Sat by Pulse 100 100 Oximetry 04/13/20 04/13/20 04/13/20 15:44 15:49 15:54 Temperature Pulse Rate 83 80 77 Blood Pressure O2 Sat by Pulse 100 100 100 Oximetry 04/13/20 04/13/20 15:59 16:04 Temperature Pulse Rate 78 82 Blood Pressure O2 Sat by Pulse 100 100 Oximetry - Exam FHR: category 1 - Labs Labs: Abnormal Labs 04/11/20 04/11/20 13:30 13:30 RDW 18.7 H Lactate Dehydrogenase 270 H Laboratory Results - last 24 hr 04/12/20 11:00 Coronavirus (PCR) Negative
[2020-04-13] MEDS ORDERED: METOCLOPRAMIDE 10 MG/2 ML INJ IV ONE (17:35)
[2020-04-13] MEDS ORDERED: BICITRA ORAL LIQD 30ML PO ONE (17:35)
[2020-04-13] MEDS ORDERED: FAMOTIDINE 20 MG/2 ML INJ IV ONE (17:35)
[2020-04-13] MEDS ORDERED: LACTATED RINGERS 1,000 ML IV SCH (17:45)
--- NOTE | 2020-04-13 17:46 | Event Note ---
Date: 04/13/20 Pt remains c/c/0 after several hours of laboring down and position changes. No descent with pushing. FHT reassuring, VSS. Discussed r/b/a of primary section, pt elects for c/s. Understands risk of bleeding, pain, infection, accidental damage to abdominal/pelvic organs, and . Dr. Zamarripa is aware of patient and en route to hospital.
[2020-04-13] MEDS ORDERED: OXYTOCIN DRIP 30 UNITS/500 ML BAG IV SCH ×2 (18:00→22:00)
[2020-04-13] MEDS ORDERED: ceFAZolin/Water 2 GM/20 ML 2 GM/20 ML SYRINGE IV NR (18:00)
[2020-04-13] MEDS ORDERED: ONDANSETRON 4 MG/2 ML INJ IV PRN (18:39)
[2020-04-13] MEDS ORDERED: HYDROmorphone 1 MG/1 ML INJ IV PRN (18:39)
--- NOTE | 2020-04-13 18:49 | Anesthesia Day of Surgery ---
Anesthesia Day of Surgery - Day of Surgery Patient Examined: Yes Patient H&P Reviewed: Yes Patient is NPO: Yes Beta Blockers: No Cardiac Clearance: No Pulmonary Clearance: No Nick's Test: N/A
[2020-04-13] MEDS ORDERED: ONDANSETRON 4 MG/2 ML INJ ONE (19:28)
[2020-04-13] MEDS ORDERED: KETOROLAC 30 MG/1 ML INJ ONE (19:28)
[2020-04-13] MEDS ORDERED: ceFAZolin/STERILE WATER 2 GM/20 ML SYRINGE IV ONE (19:30)
[2020-04-13] MEDS ORDERED: WATER FOR IRRIG STERILE 1,500 ML BOTTLE IR ONE (19:30)
[2020-04-13] MEDS ORDERED: SODIUM CHLORIDE 0.9% IRR 1,500 ML BOTTLE IR ONE (19:30)
[2020-04-13] MEDS ORDERED: OXYTOCIN 10 UNIT/1 ML INJ ONE (19:54)
[2020-04-13] MEDS ORDERED: PHENYLEPHRINE/NS 1,000 MCG/10 ML SYRINGE (OR USE) IV ONE (20:00)
[2020-04-13] MEDS ORDERED: BUPIVACAINE/PF (0.5%) 5 MG/1 ML 30 ML VIAL INFILTRATI ONE (20:10)
[2020-04-13] MEDS ORDERED: METHYLERGONOVINE MALEATE 0.2 MG/ML VIAL IM ONE (20:13)
--- NOTE | 2020-04-13 21:00 | Post Anesthesia Evaluation ---
- Post Anesthesia Evaluation Patient Participated: Yes Airway Patent: Yes Stable Respiratory Function: Yes Nausea/Vomiting: No Temp > 96.8F: Yes Pain Manageable: Yes Adequeate Hydration: Yes Anesthesia Complications: No Block Receding Appropriately: Yes Patient on Ventilator: No
[2020-04-13] MEDS ORDERED: LANOLIN/ZINC/DIMETHICONE (LANSINOH) 7 GM TP PRN (21:20)
[2020-04-13] MEDS ORDERED: WITCH HAZEL/ GLYCERIN PAD TP PRN (21:20)
[2020-04-13] MEDS ORDERED: SIMETHICONE 80 MG CHEW TAB PO PRN (21:23)
[2020-04-13] MEDS ORDERED: SENNOSIDES 8.6 MG TAB PO PRN (21:23)
--- NOTE | 2020-04-13 22:03 | Operative Report ---
Operative Report Operative Report: Preoperative diagnosis: IUP at 40w3d Failed Descent Gestational Hypertension Advanced Maternal Age Obesity LGA fetus pericardial effusion Fibroid uterus Rh Negative s/p Rhogam on 02/24/20 Genital herpes without lesion or prodrome GBS positive Postoperative diagnosis: Same as above Procedure: Primary low transverse delivery Surgeon: Gissel Zamarripa M.D. Anesthesia: Regional Estimated blood loss: 1000 mL IV fluids: 900 mL Urine output: 200 mL Findings: Liveborn male with Apgars of 8 and 9 weight 4307 g in cephalic presentation, tubes, and ovaries Indications: 40 year old female primigravida ABY 04/10/20 who presented for induction of labor at 40w1d. Labor course was initially unremarkable with maximum cervical dilation of 10cm. No descent after adequate time provided pushing with epidural. The recommendation was to proceed with delivery. Risks/benefits/alternatives/indication for the procedure reviewed. Informed consent obtained. Procedure: The patient was taken to the operating room and given regional anesthesia without complication. She was prepped and draped in a normal sterile fashion. A Pfannenstiel skin incision was made down to layer the fascia which was nicked in the midline. The incision was extended laterally with the Escamilla scissors. The superior aspect of the rectus fascia was grasped with Chet clamps x2 and the rectus muscles off sharply. This was done in inferior fashion as well. The rectus muscle midline and peritoneum entered bluntly. An Sulaiman retractor was then inserted. The vesicouterine peritoneum was entered sharply with the Metzenbaum scissors, and the bladder flap was created digitally. A low transverse uterine incision was then made and extended digitally. There was clear fluid upon entry into the uterine cavity. The infant was delivered in cephalic presentation. The cord was clamped and cut x2 and was passed off to pediatrics. The placenta was delivered with gentle traction. The uterus was then exteriorized and cleared of clots and debris. The uterine incision was then closed in a running locked fashion with 0 Vicryl, additional imbricating stitch was applied for 2 layer closure. Bleeding was noted in the left inferior aspect of the incision, this was repaired with a figure of eight stitch. Reinspection was significant for adequate hemostasis. The serosa was then reapproximated with 4-0 monocryl. The uterus was replaced back into the abdomen and pelvis were the gutters were cleared of blood and clots. The Sulaiman retractor was then removed. The peritoneum was then reapproximated with 2-0 Vicryl. The rectus muscle was reapproximated with 3 interrupted sutures using 2-0 vicryl. Bleeding was visualized on the rectus layer below the fascial edge, surgicel was placed. The fascia was then closed with 0 Vicryl in a running fashion. The skin was then reapproximated with 3-0 Monocryl on a Josiah needle subcuticular fashion. Steri-Strips to place across the incision and a Crede procedures performed at the end of the surgery. A pressure dressing was applied to the incision. The patient was taken to the recovery room in stable condition. All sponge laps and needle counts correct x2.
[2020-04-14] MEDS: LACTATED RINGERS 1,000 ML IV SCH (01:15)
[2020-04-14] MEDS: oxyCODONE /ACETAMINOPHEN 5-325MG TAB PO PRN ×3 (04:33→16:28)
--- NOTE | 2020-04-14 08:59 | Progress Note ---
Assessment and Plan A: POD1 s/p pLTCS due to arrest of descent Acute anemia due to blood loss (1000 EBL) Gestational hypertension, BPs labile Rh negative Dizzy upon ambulation P: Monitor clinical status closely, PreE labs if labile BPs persist Rhogam workup Ferrous sulfate supplementation Fall risk precautions Subjective - Subjective Date of service: 04/14/20 Principal diagnosis: s/p pLTCS; gHTN and AMA Interval history: POD1 s/p pLTCS due to arrest of descent Patient reports: appetite normal, pain well controlled, flatus, no voiding normally (catheter still in place), no bowel movement, no ambulating normally (ambulating with assistance due to pain medication) [place]: doing well, bottle feeding Objective - Vital Signs Latest vital signs: Vital Signs Temp Pulse Resp BP BP Pulse Ox 04/14/20 04:00 98.1 F 97 H 18 144/85 97 04/13/20 22:25 98.5 F 68 18 134/80 98 04/13/20 22:00 98.5 F 85 19 136/84 99 04/13/20 21:45 70 19 132/94 99 04/13/20 21:30 92 H 23 125/62 100 04/13/20 21:15 70 20 145/83 100 04/13/20 21:10 70 20 144/73 100 04/13/20 21:05 68 22 146/75 100 04/13/20 21:00 98.7 F 62 29 H 134/68 95 04/13/20 19:00 85 98 04/13/20 18:55 94 H 98 04/13/20 18:50 95 H 98 04/13/20 18:45 92 H 98 04/13/20 18:40 93 H 97 04/13/20 18:35 102 H 97 04/13/20 18:30 111 H 100 04/13/20 18:25 115 H 100 04/13/20 18:20 98.6 F 101 H 99 04/13/20 18:15 107 H 100 04/13/20 18:10 100 H 99 04/13/20 17:54 110 H 100 04/13/20 17:49 100 H 100 04/13/20 17:44 91 H 98 04/13/20 17:39 102 H 98 04/13/20 17:34 91 H 99 12/16/20 17:29 100 H 99 1216/20 17:24 105 H 100 12/16/20 17:19 100 H 98 1216/20 17:14 97 H 99 1216/20 17:09 98 H 98 1216/20 17:04 92 H 98 12/16/20 16:59 92 H 98 1216/20 16:54 100 H 99 1216/20 16:49 97 H 97 1216/20 16:44 89 96 1216/20 16:39 83 97 1216/20 16:34 80 96 12/16/20 16:29 82 96 1216/20 16:24 85 97 1216/20 16:19 89 96 16/20 16:14 89 96 16/20 16:09 86 97 16/20 16:04 82 100 16/20 16:00 98.4 F 16/20 15:59 78 100 16/20 15:54 77 100 16/20 15:49 80 100 16/20 15:44 83 100 16/20 15:39 84 100 1216/20 15:38 85 117/68 1216/20 15:34 95 H 100 16/20 15:29 90 100 1216/20 15:24 84 100 16/20 15:19 92 H 100 16/20 15:14 99 H 100 16/20 15:09 113 H 100 16/20 15:04 109 H 100 16/20 14:59 108 H 100 16/20 14:54 110 H 99 16/20 14:49 95 H 100 16/20 14:46 58 L 91 16/20 14:44 113 H 98 16/20 14:38 121 H 99 16/20 14:33 118 H 97 16/20 14:28 115 H 100 16/20 14:23 109 H 100 16/20 14:18 113 H 99 16/20 14:14 110 H 84 16/20 14:13 118 H 99 16/20 14:08 127 H 97 16/20 14:03 124 H 97 16/20 14:00 98.4 F 12/16/20 13:58 124 H 97 04/13/20 13:53 137 H 99 04/13/20 13:48 127 H 100 04/13/20 13:43 133 H 99 04/13/20 13:38 135 H 98 04/13/20 13:33 125 H 98 04/13/20 13:28 120 H 99 04/13/20 13:23 135 H 99 04/13/20 13:21 124 H 99 04/13/20 13:18 125 H 138/63 04/13/20 13:16 152 H 99 04/13/20 13:11 133 H 98 04/13/20 13:06 120 H 100 04/13/20 13:01 136 H 100 04/13/20 12:56 136 H 100 04/13/20 12:53 111 H 144/82 04/13/20 12:51 118 H 100 04/13/20 12:48 125 H 217/80 04/13/20 12:46 110 H 100 04/13/20 12:41 115 H 100 04/13/20 12:36 114 H 100 04/13/20 12:31 110 H 100 04/13/20 12:26 117 H 100 04/13/20 12:21 111 H 100 04/13/20 12:18 110 H 128/63 04/13/20 12:16 99 H 100 04/13/20 12:11 91 H 100 04/13/20 12:06 99 H 100 04/13/20 12:01 97 H 100 04/13/20 12:00 98.7 F 04/13/20 11:56 96 H 100 04/13/20 11:51 104 H 100 04/13/20 11:49 93 H 122/63 04/13/20 11:46 88 100 04/13/20 11:41 115 H 100 04/13/20 11:36 105 H 100 04/13/20 11:31 98 H 100 04/13/20 11:26 123 H 100 04/13/20 11:21 103 H 100 04/13/20 11:18 104 H 127/63 04/13/20 11:16 107 H 100 04/13/20 11:12 100 H 122/67 04/13/20 11:11 92 H 100 04/13/20 11:06 84 100 04/13/20 11:01 87 100 04/13/20 10:56 82 100 04/13/20 10:51 89 100 04/13/20 10:46 97 H 100 04/13/20 10:41 86 100 04/13/20 10:36 92 H 100 04/13/20 10:31 98 H 100 04/13/20 10:26 98 H 100 04/13/20 10:21 103 H 100 04/13/20 10:17 93 H 111/65 04/13/20 10:16 94 H 100 04/13/20 10:11 87 100 04/13/20 10:06 89 100 04/13/20 10:01 95 H 100 04/13/20 09:56 101 H 100 04/13/20 09:51 111 H 100 04/13/20 09:48 98.7 F 04/13/20 09:47 118 H 119/61 04/13/20 09:46 118 H 100 04/13/20 09:41 80 99 04/13/20 09:36 83 99 04/13/20 09:31 80 99 04/13/20 09:26 81 99 04/13/20 09:21 90 99 04/13/20 09:17 99 H 115/57 04/13/20 09:16 91 H 100 04/13/20 09:11 84 100 04/13/20 09:06 79 100 04/13/20 09:01 72 100 04/13/20 08:56 76 100 Intake and Output 04/13/20 04/14/20 04/14/20 23:59 07:59 15:59 Intake Total 1250 Output Total 325 300 Balance 925 -300 Intake: IV 1250 Output: Urine 325 300 Indwelling Catheter 300 Uretheral (Martino) 125 Other: Total, Output Amount 300 Estimated Blood Loss 1,000 - Exam Lungs: Present: Normal air movement Abdomen: Present: normal appearance, soft, tenderness (at incision site). Absent: distention Uterus: Present: normal, firm, fundal height below umbilicus. Absent: bogginess, tenderness Extremities: Present: normal Incision: Present: dressed
[2020-04-14 09:11] LABS: Hematocrit 28.8 % (30.3-42.9); Hemoglobin 9.5 gm/dl (10.1-14.3)
[2020-04-14] MEDS: FERROUS SULFATE 325 MG TAB PO SCH (10:01)
[2020-04-14] MEDS: PRENATAL VIT27-FE FUMARATE-FOLIC ACID VIT TAB PO SCH (10:01)
[2020-04-14] MEDS: valACYclovir 500 MG TAB PO SCH (10:01)
[2020-04-14] MEDS: IBUPROFEN 800 MG TAB PO PRN (16:27)
[2020-04-15] MEDS: IBUPROFEN 800 MG TAB PO PRN ×2 (05:03→20:36)
--- NOTE | 2020-04-15 08:28 | Progress Note ---
Assessment and Plan A: POD#2 s/p primary at term P: Routine postoperative care. Anticipate discharge tomorrow. Subjective - Subjective Date of service: 04/15/20 Principal diagnosis: s/p pLTCS; gHTN and AMA Interval history: Pt is a 40 year old female primigravida ABY 04/10/20 at 40w1d who presents for induction of labor. Her blood pressures were found to be elevated on Saturday04/08/20 and she was told to present to the hospital for induction at that time, but the patient remained at home because she was nervous. She checked her blood pressure over the weekend and reports values 140-150s/90s so she presented today as previously scheduled. She reports good movement and denies vaginal bleeding or leakage of fluid. She has had care at [facility] with comanagement by [facility] secondary to advanced maternal age, obesity, LGA fetus, pericardial effusion, fibroid uterus, Rh Negative s/p Rhogam on 02/24/20, genital herpes without lesion or prodrome, and GBS positive. Patient reports: appetite normal, voiding normally, pain well controlled, flatus, ambulating normally, no bowel movement : doing well Objective - Vital Signs Latest vital signs: Vital Signs Temp Pulse Resp BP Pulse Ox 04/15/20 00:25 98.2 F 93 H 20 100/60 95 04/14/20 16:28 20 04/14/20 16:27 20 04/14/20 15:56 98.3 F 92 H 20 144/78 98 04/14/20 11:22 97.9 F 88 20 116/75 98 04/14/20 10:02 20 Intake and Output 04/14/20 04/15/20 04/15/20 22:59 06:59 14:59 Intake Total 480 240 Output Total 1850 Balance -1370 240 Intake: Oral 480 Intake, Free Water 240 Output: Urine 1850 Void 1850 Other: Total, Intake Amount 240 Total, Output Amount 750 Voiding Method Toilet # Voids Void 2 - Exam Breasts: Present: deferred Abdomen: Present: soft, distention (mild) Uterus: Present: fundal height at umbilicus Extremities: Present: edema (trace) Incision: Present: dressed - Labs Labs: Abnormal lab results 04/14/20 Range/Units 08:37 Hgb 9.5 L (10.1-14.3) gm/dl Hct 28.8 L (30.3-42.9) %
[2020-04-15] MEDS: FERROUS SULFATE 325 MG TAB PO SCH (09:50)
[2020-04-15] MEDS: MAGNESIUM HYDROXIDE (MOM) ORAL LIQD UDC PO SCH ×4 (09:50→20:40)
[2020-04-15] MEDS: PRENATAL VIT27-FE FUMARATE-FOLIC ACID VIT TAB PO SCH (09:50)
[2020-04-15] MEDS: valACYclovir 500 MG TAB PO SCH (10:34)
[2020-04-15] MEDS: oxyCODONE /ACETAMINOPHEN 5-325MG TAB PO PRN (15:47)
[2020-04-16] MEDS: PRENATAL VIT27-FE FUMARATE-FOLIC ACID VIT TAB PO SCH (09:26)
[2020-04-16] MEDS: valACYclovir 500 MG TAB PO SCH (09:26)
[2020-04-16] MEDS: FERROUS SULFATE 325 MG TAB PO SCH (09:26)
[2020-04-16] MEDS: oxyCODONE /ACETAMINOPHEN 5-325MG TAB PO PRN (09:27)
[2020-04-16] MEDS: MAGNESIUM HYDROXIDE (MOM) ORAL LIQD UDC PO SCH ×2 (09:29→14:04)
--- NOTE | 2020-04-16 14:05 | Progress Note ---
Assessment and Plan POD 3 s/p ltcs. Doing well. Plan for discharge on today. Subjective - Subjective Date of service: 04/16/20 Principal diagnosis: s/p pLTCS; gHTN and AMA Patient reports: appetite normal, voiding normally, pain well controlled, flatus, ambulating normally : doing well Objective - Vital Signs Latest vital signs: Vital Signs Temp Pulse Resp BP BP Pulse Ox 04/16/20 08:15 97.9 F 91 H 20 121/76 04/16/20 00:32 97.9 F 104 H 20 118/70 98 04/15/20 20:36 16 04/15/20 16:20 98.6 F 80 18 146/82 98 Intake and Output 04/15/20 04/16/20 04/16/20 22:59 06:59 14:59 Intake Total 240 360 320 Balance 240 360 320 Intake: Oral 240 320 Intake, Free Water 360 Other: Total, Intake Amount 240 320 Voiding Method Toilet # Voids Void 2 1 - Exam Breasts: Present: deferred Cardiovascular: Present: Regular rate, Normal S1, Normal S2 Lungs: Present: Clear to auscultation, Normal air movement Abdomen: Present: normal appearance, soft, normal bowel sounds Vulva: both: normal Uterus: Present: normal, firm Extremities: Present: normal Incision: Present: normal, dry, intact
--- NOTE | 2020-04-16 14:08 | Discharge Summary ---
Providers - Providers Date of Admission: 04/11/20 11:05 Date of discharge: 04/16/20 Attending physician: INEZ LEIGH Primary care physician: INEZ LEIGH Hospitalization Reason for admission: section Delivery: Procedure: repeat low transverse Incision: normal, dry, intact Other procedures: none complications: none Discharge diagnosis: IUP at term delivered baby: female Hospital course: unremarkable Condition at discharge: Good Disposition: DC-01 TO HOME OR SELFCARE Plan - Discharge Medications Prescriptions: Ferrous Sulfate [Feosol 325 MG tab] 325 mg PO BID #60 tablet Ibuprofen [Motrin] 800 mg PO Q8HR PRN #30 tablet PRN Reason: Pain, Moderate (4-6) oxyCODONE /ACETAMINOPHEN [Percocet 5/325] 1 tab PO Q6HR PRN #40 tablet PRN Reason: Pain - Provider Discharge Summary Activity: routine, no sex for 6 weeks, no heavy lifting 4 weeks, no strenuous exercise Diet: routine Instructions: routine Additional instructions: [] Smoking cessation referral if applicable(refer to patient education folder for contact #) [] Refer to [facility] Booklet Call your doctor immediately for: * Fever > 100.5 * Heavy vaginal bleeding ( >1 pad per hour) * Severe persistent headache * Shortness of breath * Reddened, hot, painful area to leg or breast * Drainage or odor from incision. * Keep incision clean and dry at all times and follow doctor's instructions regarding bathing/showering - Follow up plan Follow up: INEZ LEIGH MD [Primary Care Provider] - 14 Days Forms: [facility] Discharge Summary
[2020-04-16 15:56] VITALS: BP 117/74
== END 2020-04-16 15:50 | disposition home or self-care (01) | DRG 765 ==
LOC: LD 11:05 → OB 04-14 00:19
PROVIDERS: ADMIT Obstetrics & Gynecology; ATTEND Obstetrics & Gynecology
PROC: 10D00Z1 Extraction of Products of Conception, Low, Open Approach (ICD-10-PCS; principal; 2020-04-13)
PROC: 3E0234Z Introduction of Serum, Toxoid and Vaccine into Muscle, Percutaneous Approach (ICD-10-PCS; 2020-04-14)
DX: O13.4 Gestational [pregnancy-induced] hypertension without significant proteinuria, complicating childbirth (principal); D62 Acute posthemorrhagic anemia; O98.32 Other infections with a predominantly sexual mode of transmission complicating childbirth; O99.02 Anemia complicating childbirth; E66.9 Obesity, unspecified; O99.214 Obesity complicating childbirth; O62.1 Secondary uterine inertia; D25.9 Leiomyoma of uterus, unspecified; O34.13 Maternal care for benign tumor of corpus uteri, third trimester; Z20.828 Contact with and (suspected) exposure to other viral communicable diseases; O99.824 Streptococcus B carrier state complicating childbirth; A60.00 Herpesviral infection of urogenital system, unspecified; Z37.0 Single live birth; Z3A.40 40 weeks gestation of pregnancy; Z79.899 Other long term (current) drug therapy
CPT/HCPCS: 36415; 59200; 81001; 82565; 83615; 84450; 84460; 84550; 85014; 85018; 85027; 85461; 86850; 86900; 86901; G0378; J0290; J0595; J0690; J1885; J2370; J2405; J2590; J2765; J2790; J3010; J3490; J7120; U0003